=== PATIENT | female | born 1985 | race Two or more races ===

== ENCOUNTER 2024-07-25 20:44 | Emergency (ER) | payer MEDICAID, OTHER ==
[~2024-07-25] VITALS: Ht 165.1 cm; Wt 60.0 kg
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
[2024-07-25] MEDS: ACETAMINOPHEN 325 MG TAB PO ONE (22:13)
[2024-07-25 22:23] VITALS: PULSE 93; RESP 22; O2SAT 98
[2024-07-25 22:56] VITALS: BP 122/73; PULSE 95; RESP 10; TEMP 98.4; O2SAT 96
== END 2024-07-25 22:55 | disposition home or self-care (01) ==
LOC: ER 20:44 → EDBD 20:44 → ER 22:55
DX: S39.012A Strain of muscle, fascia and tendon of lower back, initial encounter (principal); R51.9 Headache, unspecified; V89.2XXA Person injured in unspecified motor-vehicle accident, traffic, initial encounter; Y93.89 Activity, other specified; Y92.411 Interstate highway as the place of occurrence of the external cause; Y99.8 Other external cause status
CPT/HCPCS: 72040; 72100